=== PATIENT | female | born 1975 | race Two or more races ===

== ENCOUNTER 2016-11-02 16:03 | Emergency (ER) | payer OTHER ==
[2016-11-02 16:07] VITALS: BP 149/91
--- NOTE | 2016-11-02 16:12 | ER Document Report ---
ED Medical Screen (RME) - General Stated Complaint: KNEE PAIN Time seen by provider: 16:10 Mode of Arrival: Ambulatory Information source: Patient TRAVEL OUTSIDE OF THE [place] IN LAST 30 DAYS: No - HPI Patient complains to provider of: RIGHT KNEE INJURY Onset: Last week - TUESDAY Onset/Duration: Persistent Context: INJURED RIGHT KNEE WORKING OUT LAST TUESDAY. NO PREVIOUS HX KNEE PROBLEMS Quality of pain: Throbbing Severity: Moderate Pain Level: 3 Associated Symptoms: None Exacerbated by: Movement, Walking Relieved by: Remaining still Similar symptoms previously: No Recently seen / treated by doctor: No - Related Data Smoking: Cigarettes Frequency of alcohol use: None Drug Abuse: None Allergies/Adverse Reactions: No Known Allergies Allergy (Verified 11/02/16 16:06) Past Medical History Psychiatric Medical History: Reports: Hx Bipolar Disorder - Immunizations Hx Diphtheria, Pertussis, Tetanus Vaccination: - >5yrs Physical Exam - Vital signs Vitals: Temp Pulse Resp BP Pulse Ox 98.0 F 96 18 149/91 H 98 11/02/16 16:06 11/02/16 16:06 11/02/16 16:06 11/02/16 16:06 11/02/16 16:06 Course - Vital Signs Vital signs: Temp Pulse Resp BP Pulse Ox 98.0 F 96 18 149/91 H 98 11/02/16 16:06 11/02/16 16:06 11/02/16 16:06 11/02/16 16:06 11/02/16 16:06
--- NOTE | 2016-11-02 17:25 | ER Document Report ---
Addendum entered and electronically signed by ADRYAN ELLIOTT FNP 08:12: Impression/Plan Impression: DX: Left Knee Strain ( Muscle) Original Note: ED Extremity Problem, Lower - General Chief Complaint: Knee Pain Stated Complaint: KNEE PAIN Mode of Arrival: Ambulatory Notes: This 41-year-old female presenting to the emergency room today stating that she had discomfort to her right knee after attempting to follow a workup video last . TRAVEL OUTSIDE OF THE [place] IN LAST 30 DAYS: No - HPI Occurred: Other - Last - Related Data Allergies/Adverse Reactions: No Known Allergies Allergy (Verified 11/02/16 16:06) Past Medical History - General Information source: Patient - Social History Smoking Status: Current Some Day Smoker Chew tobacco use (# tins/day): Yes Frequency of alcohol use: None Drug Abuse: None Family History: Reviewed & Not Pertinent Patient has suicidal ideation: No Patient has homicidal ideation: No Renal/ Medical History: Denies: Hx Peritoneal Dialysis Psychiatric Medical History: Reports: Hx Bipolar Disorder - Immunizations Hx Diphtheria, Pertussis, Tetanus Vaccination: - >5yrs Review of Systems - Review of Systems Constitutional: No symptoms reported EENT: No symptoms reported Cardiovascular: No symptoms reported Respiratory: No symptoms reported Gastrointestinal: No symptoms reported Genitourinary: No symptoms reported Female Genitourinary: No symptoms reported Musculoskeletal: No symptoms reported Skin: No symptoms reported Hematologic/Lymphatic: No symptoms reported Neurological/Psychological: No symptoms reported Physical Exam - Vital signs Vitals: Temp Pulse Resp BP Pulse Ox 98.0 F 96 18 149/91 H 98 11/02/16 16:06 11/02/16 16:06 11/02/16 16:06 11/02/16 16:06 11/02/16 16:06 Interpretation: Normal - General General appearance: Appears well, Alert - HEENT Head: Normocephalic, Atraumatic Eyes: Normal Pupils: PERRL - Respiratory Respiratory status: No respiratory distress Chest status: Nontender Breath sounds: Normal Chest palpation: Normal - Cardiovascular Rhythm: Regular Heart sounds: Normal auscultation Murmur: No - Abdominal Inspection: Normal Distension: No distension Bowel sounds: Normal Tenderness: Nontender Organomegaly: No organomegaly - Back Back: Normal, Nontender - Extremities General upper extremity: Normal inspection, Nontender, Normal color, Normal ROM , Normal temperature General lower extremity: Normal inspection, Nontender, Normal color, Normal ROM , Normal temperature, Normal weight bearing. No: Jennifer's sign Knee: Tender. No: Drawer's test instability, Ecchymosis, Instability - Neurological Neuro grossly intact: Yes Cognition: Normal Orientation: AAOx4 Manan Coma Scale Eye Opening: Spontaneous Reading Coma Scale Verbal: Oriented Reading Coma Scale Motor: Obeys Commands Manan Coma Scale Total: 15 Speech: Normal Motor strength normal: LUE, RUE, LLE, RLE Sensory: Normal - Psychological Associated symptoms: Normal affect, Normal mood - Skin Skin Temperature: Warm Skin Moisture: Dry Skin Color: Normal Course - Vital Signs Vital signs: Temp Pulse Resp BP Pulse Ox 98.0 F 96 18 149/91 H 98 11/02/16 16:06 11/02/16 16:06 11/02/16 16:06 11/02/16 16:06 11/02/16 16:06 - Diagnostic Test Radiology reviewed: Reports reviewed - Transfer of Care Notes: 11/02/16 17:24 Patient is ambulatory with a rhythmic and steady gait good distal pulses tenderness distal to the patella anteriorly of the knee. Discharge - Discharge Clinical Impression: Strain of knee Qualifiers: Laterality: right Disposition: HOME, SELF-CARE Additional Instructions: Kidney Injury You have a kidney injury. The injury does not seem to be serious, and should heal by itself. Kidney injuries are treated with rest. The first 24 hours after the injury , bed rest is usually recommended. You should not play sports or do vigorous physical activity for a few days until all blood is cleared from the urine. The doctor will advise you when it's safe. Drink plenty of fluids (at least three quarts per day), unless the physician has advised you otherwise. This washes the blood away, lessening the risk of painful clots forming. You should return for further care if you develop lightheadedness, fever, increasingly severe flank pain, or inability to urinate. Follow-up with private doctor in 1 to 2 days for final radiology readings please return to the emergency room for any change worsening condition. Follow up with private M.D. for all other routine health care needs. Prescriptions: Naproxen Sodium [Naproxen Sodium ER] 500 mg PO Q12 PRN #20 tablet.sa PRN Reason: Tramadol HCl [Ultram 50 mg Tablet] 50 mg PO ASDIR PRN #20 tablet PRN Reason:
== END 2016-11-02 17:40 | disposition home or self-care (01) ==
LOC: ER 16:03
DX: S86.912A Strain of unspecified muscle(s) and tendon(s) at lower leg level, left leg, initial encounter (principal); M25.561 Pain in right knee; X58.XXXA Exposure to other specified factors, initial encounter; F17.200 Nicotine dependence, unspecified, uncomplicated
CPT/HCPCS: 99283

== ENCOUNTER 2018-12-03 08:48 | Emergency (ER) | payer SELFPAY ==
[2018-12-03 08:55] VITALS: BP 149/96
[2018-12-03] MEDS ORDERED: LIDOCAINE 5% (700 MG) TRANSDERMAL ADH..PATCH TP ONE (09:25)
[2018-12-03] MEDS ORDERED: ACETAMINOPHEN 325 MG TABLET PO ONE (09:25)
--- NOTE | 2018-12-03 09:27 | ER Document Report ---
HPI - HPI Patient complains to provider of: Low back pain Time Seen by Provider: 12/03/18 09:20 Onset: Last week Onset/Duration: Persistent Quality of pain: Sharp Pain Level: 5 Context: Patient complains of a flareup of her chronic low back pain. Patient reports that back pain across the lower back that radiates to the right buttock. Patient denies any new injury. Patient denies any fever, urinary retention or incontinence. Pain is typical of flareups that she has had in the past. Associated Symptoms: Other - Low back pain. denies: Fever Exacerbated by: Sitting, Standing, Movement, Walking Relieved by: Denies Similar symptoms previously: Yes Recently seen / treated by doctor: No - ROS ROS below otherwise negative: Yes Systems Reviewed and Negative: Yes All other systems reviewed and negative - CONSTITUTIONAL Constitutional: DENIES: Fever, Chills - NEURO Neurology: DENIES: Weakness - GASTROINTESTINAL Gastrointestinal: DENIES: Nausea, Patient vomiting - URINARY Urinary: DENIES: Dysuria, Urgency, Frequency - REPRODUCTIVE Reproductive: DENIES: : - MUSCULOSKELETAL Musculoskeletal: REPORTS: Back Pain. DENIES: Extremity pain - DERM Skin Color: Normal Skin Problems: None Past Medical History - General Information source: Patient - Social History Smoking Status: Never Smoker Chew tobacco use (# tins/day): No Frequency of alcohol use: None Drug Abuse: None Occupation: Childcare Family History: Reviewed & Not Pertinent Patient has suicidal ideation: No Patient has homicidal ideation: No Renal/ Medical History: Denies: Hx Peritoneal Dialysis Musculoskeletal Medical History: Reports Other - Low back pain Psychiatric Medical History: Reports: Hx Bipolar Disorder Past Surgical History: Reports: Hx Abdominal Surgery - laparscopy - Immunizations Hx Diphtheria, Pertussis, Tetanus Vaccination: - >5yrs Vertical Provider Document - CONSTITUTIONAL Agree With Documented VS: Yes Exam Limitations: No Limitations General Appearance: WD/WN, No Apparent Distress Notes: PHYSICAL EXAMINATION: GENERAL: Well-appearing, well-nourished and in no acute distress. HEAD: Atraumatic, normocephalic. EYES: sclera clear, anicteric, conjunctiva are normal. ENT: nares patent, Moist mucous membranes. NECK: Normal range of motion, supple no lymphadenopathy LUNGS: respirations unlabored HEART: Regular rate and rhythm without murmurs EXTREMITIES: Normal range of motion, no pitting or edema. No cyanosis. Gait normal, pt ambulates without difficulty BACK: Lumbar paraspinal tenderness, right SI joint tenderness, no midline tenderness, no deformities or step-offs. No CVA tenderness. NEUROLOGICAL: Cranial nerves grossly intact. Normal speech, normal gait. No saddle anesthesia. PSYCH: Normal mood, normal affect. SKIN: Warm, Dry, normal turgor, no rashes or lesions noted. - INFECTION CONTROL TRAVEL OUTSIDE OF THE [place] IN LAST 30 DAYS: No Course - Re-evaluation Re-evalutation: The patient presents with low back pain without signs of spinal cord compression, cauda equina syndrome, infection, aneurysm, or other serious etiology. The patient is neurologically intact. Given the extremely risk of these diagnoses further testing and evaluation for these possibilities does not appear to be indicated at this time. Patient has been instructed to return if the symptoms worsen or change in any way. - Vital Signs Vital signs: Temp Pulse Resp BP Pulse Ox 98.6 F 91 18 149/96 H 98 12/03/18 08:53 12/03/18 08:53 12/03/18 08:53 12/03/18 08:53 12/03/18 08:53 Discharge - Discharge Clinical Impression: Low back pain Qualifiers: Chronicity: unspecified Back pain laterality: bilateral Sciatica presence: with sciatica Sciatica laterality: sciatica of right side Qualified Code(s): M54.41 - Lumbago with sciatica, right side Condition: Stable Disposition: HOME, SELF-CARE Instructions: Ice Packs ([facility]), Low Back Pain ([facility]), Oral Narcotic Medication ([facility]), Sciatica ([facility]) Additional Instructions: Return immediately for any new or worsening symptoms Followup with your primary care provider, call tomorrow to make a followup appointment Prescriptions: Hydrocodone/Acetaminophen [[place] 5-325 mg Tablet] 1 tab PO Q6 PRN #15 tablet PRN Reason: Naproxen [Naprosyn 250 Nmg Tablet] 1 tab PO BID #14 tablet Forms: Return to Work Referrals: [facility] [Provider Group] - Follow up as needed [facility] [Provider Group] - Follow up as needed
== END 2018-12-03 09:35 | disposition home or self-care (01) ==
LOC: ER 08:48
DX: M54.41 Lumbago with sciatica, right side (principal)
CPT/HCPCS: 99283